=== PATIENT | female | born 1960 | race Caucasian/White ===

== ENCOUNTER 2016-11-06 15:15 | Outpatient (CLI) | END 2016-11-06 15:16 | LOC: AMBL 15:15 | PROVIDERS: ATTEND Emergency Medicine | DX: S01.81XA Laceration without foreign body of other part of head, initial encounter (principal); S05.92XA Unspecified injury of left eye and orbit, initial encounter; Y04.2XXA Assault by strike against or bumped into by another person, initial encounter ==